=== PATIENT | male | born 1950 | race African-American/Black ===

== ENCOUNTER 2016-07-28 10:09 | Emergency (ER) | payer OTHER, MEDICARE ==
[2016-07-28 10:16] VITALS: BP 124/73
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
--- NOTE | 2016-07-28 14:57 | EKG REPORT ---
SEVERITY:- NORMAL ECG - SINUS RHYTHM : Confirmed by: Alina Bañuelos MD 28-Jul-2016 14:56:36
== END 2016-07-28 12:01 | disposition home or self-care (01) ==
LOC: ER 10:09
DX: R51 Headache (principal); V53.5XXA Driver of pick-up truck or van injured in collision with car, pick-up truck or van in traffic accident, initial encounter; I10 Essential (primary) hypertension
CPT/HCPCS: 70450; 93005; 93010; 99284

== ENCOUNTER 2017-06-05 14:59 | Emergency (ER) | payer MEDICARE, BC ==
[2017-06-05 15:26] VITALS: BP 143/80
[2017-06-05] MEDS ORDERED: DIPH/PERTUSS(ACELL)/TETANUS VAC/PF 0.5 ML SYR (>=10YO) IM ONE (15:35)
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
== END 2017-06-05 16:32 | disposition home or self-care (01) ==
LOC: ER 14:59
PROC: 0HQ0XZZ Repair Scalp Skin, External Approach (ICD-10-PCS; principal; 2017-06-05)
DX: S01.01XA Laceration without foreign body of scalp, initial encounter (principal); W22.8XXA Striking against or struck by other objects, initial encounter
CPT/HCPCS: 99282

== ENCOUNTER 2017-06-09 06:21 | Emergency (ER) | payer MEDICARE, BC ==
[2017-06-09 06:27] VITALS: BP 131/73
--- NOTE | 2017-06-09 06:39 | ER Document Report ---
HPI - HPI Patient complains to provider of: Staple removal Pain Level: Denies Context: 67-year-old male, chief complaint of being here for staple removal, criss placed 4 days ago, told to come back in 3-5 days. [place] were placed for hitting his head on a shelf. Denies headaches or any other difficulties. - REPRODUCTIVE Reproductive: DENIES: : Past Medical History - General Information source: Patient - Social History Smoking Status: Never Smoker Frequency of alcohol use: None Drug Abuse: None Lives with: Family Family History: Reviewed & Not Pertinent - Past Medical History Cardiac Medical History: Reports: Hx Heart Murmur - innocent Denies: Hx Coronary Artery Disease, Hx Heart Attack, Hx Hypertension Pulmonary Medical History: Denies: Hx Asthma, Hx Bronchitis, Hx COPD, Hx Pneumonia Neurological Medical History: Denies: Hx Cerebrovascular Accident, Hx Seizures Renal/ Medical History: Denies: Hx Peritoneal Dialysis GI Medical History: Musculoskeltal Medical History: Denies Hx Arthritis Infectious Medical History: Past Surgical History: Denies: Hx Pacemaker - Immunizations Hx Diphtheria, Pertussis, Tetanus Vaccination: Yes Vertical Provider Document - CONSTITUTIONAL General Appearance: WD/WN, No Apparent Distress - INFECTION CONTROL TRAVEL OUTSIDE OF THE [place] IN LAST 30 DAYS: No - HEENT HEENT: Normocephalic - NECK Neck: Normal Inspection - RESPIRATORY Respiratory: Breath Sounds Normal, No Respiratory Distress O2 Sat by Pulse Oximetry: 98 - CARDIOVASCULAR Cardiovascular: Regular Rate, Regular Rhythm - DERM Integumentary: Laceration - Healed laceration over the right frontal scalp, staple in place, no surrounding bleeding, rhythmic, induration, fluctuance. No noted tenderness to the area. Course - Re-evaluation Re-evalutation: Single staple removed without complication. Wound appears healed. No other complaints. No other concerning findings. - Vital Signs Vital signs: Temp Pulse Resp BP Pulse Ox 98.4 F 55 L 16 131/73 H 98 06/09/17 06:24 06/09/17 06:24 06/09/17 06:24 06/09/17 06:24 06/09/17 06:24 Discharge - Discharge Clinical Impression: Encounter for staple removal Condition: Stable Disposition: HOME, SELF-CARE Additional Instructions: Clean area gently with soap and water. Follow-up with primary care. Return for any concerning symptoms including severe headaches, fever, discolored drainage from the area, or any other concerning symptoms.
== END 2017-06-09 06:43 | disposition home or self-care (01) ==
LOC: ER 06:21
DX: Z48.02 Encounter for removal of sutures (principal)

== ENCOUNTER → 2017-08-25 | Outpatient (CLI) | payer MEDICARE, BC | LOC: OD 07:30 | PROVIDERS: ATTEND Urology | DX: N40.1 Benign prostatic hyperplasia with lower urinary tract symptoms (principal); N52.8 Other male erectile dysfunction; N52.9 Male erectile dysfunction, unspecified | CPT/HCPCS: 36415; 84153 ==

== ENCOUNTER 2018-07-26 19:00 | Emergency (ER) | payer BC, MEDICARE ==
[2018-07-26 19:28] VITALS: BP 136/74
[2018-07-26] MEDS ORDERED: ACETAMINOPHEN 325 MG TABLET PO ONE (20:28)
[2018-07-26] MEDS ORDERED: IBUPROFEN 600 MG TABLET PO ONE (20:28)
[2018-07-26] MEDS ORDERED: LIDOCAINE 5% (700 MG) TRANSDERMAL ADH..PATCH TP ONE (20:28)
--- NOTE | 2018-07-26 20:30 | ER Document Report ---
HPI - HPI Time Seen by Provider: 07/26/18 20:19 Pain Level: 5 Context: Patient is a 68-year-old male who presents to the emergency department with a chief complaint of right arm and shoulder pain. He states that he has had his pain for the past few weeks. He also states that he has a knot in his shoulder. He has been taking Tylenol for his pain, but takes it sporadically. He denies any weakness. - CONSTITUTIONAL Constitutional: DENIES: Fever, Chills - CARDIOVASCULAR Cardiovascular: DENIES: Chest pain - RESPIRATORY Respiratory: DENIES: Trouble Breathing - REPRODUCTIVE Reproductive: DENIES: : - MUSCULOSKELETAL Musculoskeletal: REPORTS: Extremity pain - R arm pain and R shoulder lump Past Medical History - Social History Smoking Status: Never Smoker Frequency of alcohol use: None Drug Abuse: None Family History: Reviewed & Not Pertinent Patient has suicidal ideation: No Patient has homicidal ideation: No - Past Medical History Cardiac Medical History: Reports: Hx Hypertension, Hx Heart Murmur - innocent Denies: Hx Coronary Artery Disease, Hx Heart Attack Pulmonary Medical History: Denies: Hx Asthma, Hx Bronchitis, Hx COPD, Hx Pneumonia Neurological Medical History: Denies: Hx Cerebrovascular Accident, Hx Seizures Renal/ Medical History: Denies: Hx Peritoneal Dialysis GI Medical History: Musculoskeletal Medical History: Denies Hx Arthritis Infectious Medical History: Past Surgical History: Denies: Hx Pacemaker - Immunizations Hx Diphtheria, Pertussis, Tetanus Vaccination: Yes Vertical Provider Document - INFECTION CONTROL TRAVEL OUTSIDE OF THE [place] IN LAST 30 DAYS: No - HEENT HEENT: Atraumatic, Normocephalic - NECK Neck: Normal Inspection - RESPIRATORY Respiratory: Breath Sounds Normal - CARDIOVASCULAR Cardiovascular: Regular Rate, Regular Rhythm - MUSCULOSKELETAL/EXTREMETIES Musculoskeletal/Extremeties: FROM, Tender - Right shoulder and trapezius area, No Edema - NEURO Level of Consciousness: Awake, Alert, Appropriate Motor/Sensory: No Motor Deficit - DERM Integumentary: Warm, Dry Course - Re-evaluation Re-evalutation: 07/26/18 20:38 Patient denies any trauma to his arm, therefore an x-ray is not indicated at this time. I suspect his pain is due to muscle tension in his right shoulder. I massage the area and he stated that he felt better after massage the area. He will be given Motrin and Tylenol for his symptoms. He also be given a lidocaine patch. I do not suspect patient has compartment syndrome, as his arm is soft. Verbal discharge instructions were given to the patient. They verbalized understanding. They are stable for discharge. - Vital Signs Vital signs: Temp Pulse Resp BP Pulse Ox 98.0 F 56 L 18 136/74 H 96 07/26/18 19:27 07/26/18 19:27 07/26/18 19:27 07/26/18 19:27 07/26/18 19:27 Discharge - Discharge Clinical Impression: Right arm pain Shoulder pain Qualifiers: Chronicity: acute Laterality: right Qualified Code(s): M25.511 - Pain in right shoulder Condition: Stable Disposition: HOME, SELF-CARE Additional Instructions: You were seen in the emergency department today for right arm pain and right shoulder pain. Your pain is due to the tight muscle in your shoulder. Make sure you have someone massage that area to help release the muscle tension in the area. Please take Tylenol 1000 mg and ibuprofen 600 mg every 6 hours as needed for your pain. You may use [id number] Aspercreme with lidocaine to the area as needed per box instructions. Please follow-up with your primary care provider in regards to this visit. If you have weakness, or unable to move your arm, please return to the emergency department. Referrals: ANALI PARDO MD [NO LOCAL MD] - Follow up in 1 week
== END 2018-07-26 20:50 | disposition home or self-care (01) ==
LOC: ER 19:00
DX: M79.601 Pain in right arm (principal); M25.511 Pain in right shoulder; R22.31 Localized swelling, mass and lump, right upper limb; I10 Essential (primary) hypertension
CPT/HCPCS: 99283

== ENCOUNTER 2019-11-21 07:47 | Day surgery (SDC) | payer MEDICARE, BC ==
[~2019-11-21 07:47] MED LIST: FENTANYL CITRATE INJ/PF 100 MCG/2 ML AMPUL ONE; KETOROLAC TROMETHAMINE 0.45% 4 DROP/0.4 ML DROPERETTE OD PRN; MIDAZOLAM 2 MG/2 ML INJ ONE; ONDANSETRON HCL INJ/PF 4 MG/2 ML SDV ONE
[2019-11-21] MEDS: TETRACAINE HCL 0.5% OPH SOLN 4 ML OD PRN ×4 (08:20→08:50)
[2019-11-21] MEDS: CYCLOPENTOLATE 0.2%/PHENYLEPHRINE 1% OPH SOLN 2 ML OD PRN ×3 (08:21→08:40)
[2019-11-21] MEDS: BESIFLOXACIN HCL 0.6% OPH SUSP 5 ML BOTTLE OD PRN ×4 (08:21→09:12)
[2019-11-21] MEDS: TROPICAMIDE 1% OPH SOLN 15 ML OD PRN ×3 (08:21→08:40)
[2019-11-21] MEDS: EPINEPHRINE INJ/PF 1 MG/1 ML AMPULE ONE ×2 (08:57)
[2019-11-21] MEDS: CHONDR SU A NA/HYALUR INTRAOC KIT (SURGICARE) ONE ×2 (08:57)
[2019-11-21] MEDS: LIDOCAINE 1%/PHENYLEPHRINE 1.5% 1 ML VIAL ONE ×2 (08:57)
[2019-11-21] MEDS: DORZOLAMIDE HCL 2%/TIMOLOL MALEAT 0.5% OPH SOLN 10 ML OD PRN ×2 (09:12)
--- NOTE | 2019-11-21 10:48 | Operative Report ---
Operative Report-[facility] Operative Report: DATE OF SURGERY: November 21, 2019 PREOPERATIVE DIAGNOSIS: NUCLEAR CATARACT, RIGHT EYE. Glaucoma right eye POSTOPERATIVE DIAGNOSIS: NUCLEAR CATARACT, RIGHT EYE. Glaucoma right eye PROCEDURE PERFORMED: PHACOEMULSIFICATION WITH POSTERIOR CHAMBER INTRAOCULAR LENS IMPLANT, RIGHT EYE. I stent inject SURGEON: Paulino Benson, MEDICATIONS AND ANESTHESIA: Versed: IV Versed Tetracaine drops: 1 to 2 drops given as needed COMPLICATION: [None] INDICATIONS FOR SURGERY: Medical necessity: Best corrected visual acuity worse than 20/40 secondary to cataracts with impairment of ability to carry out needs or desired activities, blurred vision, visual distortion, reduced contrast sensitivity and/or glare with association functional impairment and supporting documentation/testing, and cataracts causing symptomatic impairment of visual functions not corrected with tolerable changes in glasses or contact lenses interfering with activities of daily life. PROCEDURE: Consent: The risks, benefits and alternatives of this procedures was discussed with the patient. The patient read and signed the consent forms, was identified and was seated in the exam chair. IOL: MX 60 E 21.0 IOL Diopters: [] Phacoemulsification with posterior chamber intraocular lens implant: The face was prepped with 5% povidone iodine solution, and a few drops of 5% povidone iodine solution was instilled into the inferior fornix. A non-fenestrated drape was placed over the eye and the lids were parted with the speculum. A paracentes is was made with a 15 degree blade, and 1% lidocaine MPF followed by viscoelastic was injected into the anterior chamber. A 2.4 mm metal micro- keratome was used to create a temporal clear corneal incision. A circular anterior capsulorrhexis was created, followed by hydro-dissection and hydro- delineation. The phacoemulsification hand piece was inserted and the nucleus was removed with the Phaco chop technique. The irrigation-aspiration hand piece was used to remove the residual cortex, and vacuum the posterior capsule. The capsular bag was inflated and viscoelastic and the above-mentioned IOL was injected into the eye with care to insert both leaning and trailing haptics in the capsular bag. The irrigation/aspiration hand piece was reinserted to remove residual viscoelastic from the capsular bag and anterior chamber. The corneal incision was hydrated, and anterior chamber was inflated with sterile BSS via the paracentesis site, and found to be watertight. Postop medication: 1 drop of prednisolone into operative by followed by 1 drop of Cosopt into operative eye followed by 1 drop of Besivance intraoperative by other: During the case I stent inject was placed, two Istents approximately 2 clock hours apart
== END 2019-11-21 09:44 | disposition home or self-care (01) ==
LOC: SC 07:47
PROVIDERS: ATTEND Ophthalmology
DX: H25.11 Age-related nuclear cataract, right eye (principal); H40.1131 Primary open-angle glaucoma, bilateral, mild stage; Z79.899 Other long term (current) drug therapy; I10 Essential (primary) hypertension
CPT/HCPCS: 0191T; 66984; C1783; J0171; J2250; J2405; J3010; J3490; V2632

== ENCOUNTER 2019-12-05 08:32 | Day surgery (SDC) | payer MEDICARE, BC ==
[~2019-12-05 08:32] MED LIST changes: -FENTANYL CITRATE INJ/PF 100 MCG/2 ML AMPUL ONE; -KETOROLAC TROMETHAMINE 0.45% 4 DROP/0.4 ML DROPERETTE OD PRN; +KETOROLAC TROMETHAMINE 0.45% 4 DROP/0.4 ML DROPERETTE OS PRN; -MIDAZOLAM 2 MG/2 ML INJ ONE; -ONDANSETRON HCL INJ/PF 4 MG/2 ML SDV ONE
[2019-12-05] MEDS: CYCLOPENTOLATE 0.2%/PHENYLEPHRINE 1% OPH SOLN 2 ML OS PRN ×3 (08:38→08:58)
[2019-12-05] MEDS: TROPICAMIDE 1% OPH SOLN 15 ML OS PRN ×3 (08:38→08:58)
[2019-12-05] MEDS: BESIFLOXACIN HCL 0.6% OPH SUSP 5 ML BOTTLE OS PRN ×4 (08:38→09:38)
[2019-12-05] MEDS: TETRACAINE HCL 0.5% OPH SOLN 4 ML OS PRN ×4 (08:39→09:15)
[2019-12-05] MEDS ORDERED: MIDAZOLAM 2 MG/2 ML INJ ONE (08:47)
[2019-12-05] MEDS ORDERED: FENTANYL CITRATE INJ/PF 100 MCG/2 ML AMPUL ONE (08:47)
[2019-12-05] MEDS: LIDOCAINE 1%/PHENYLEPHRINE 1.5% 1 ML VIAL ONE ×2 (09:23)
[2019-12-05] MEDS: EPINEPHRINE INJ/PF 1 MG/1 ML AMPULE ONE ×2 (09:23)
[2019-12-05] MEDS: CHONDR SU A NA/HYALUR INTRAOC KIT (SURGICARE) ONE ×2 (09:23)
[2019-12-05] MEDS: DORZOLAMIDE HCL 2%/TIMOLOL MALEAT 0.5% OPH SOLN 10 ML OS PRN ×2 (09:38)
--- NOTE | 2019-12-05 09:50 | Operative Report ---
Operative Report-[facility] Operative Report: DATE OF SURGERY: December 05, 2019 PREOPERATIVE DIAGNOSIS: NUCLEAR CATARACT, LEFT EYE. Primary open angle glaucoma POSTOPERATIVE DIAGNOSIS: NUCLEAR CATARACT, LEFT EYE. Primary open angle glaucoma PROCEDURE PERFORMED: PHACOEMULSIFICATION WITH POSTERIOR CHAMBER INTRAOCULAR LENS IMPLANT, LEFT EYE. With istent inject SURGEON: Paulino Benson, MEDICATIONS AND ANESTHESIA: Versed: IV Versed Tetracaine drops: 1 to 2 drops given as needed COMPLICATION: [None] INDICATIONS FOR SURGERY: Medical necessity: Best corrected visual acuity worse than 20/40 secondary to cataracts with impairment of ability to carry out needs or desired activities, blurred vision, visual distortion, reduced contrast sensitivity and/or glare with association functional impairment and supporting documentation/testing, and cataracts causing symptomatic impairment of visual functions not corrected with tolerable changes in glasses or contact lenses interfering with activities of daily life. PROCEDURE: Consent: The risks, benefits and alternatives of this procedures was discussed with the patient. The patient read and signed the consent forms, was identified and was seated in the exam chair. IOL: MX 60 E 21.0 IOL Diopters: [] Phacoemulsification with posterior chamber intraocular lens implant: The face was prepped with 5% povidone iodine solution, and a few drops of 5% povidone iodine solution was instilled into the inferior fornix. A non-fenestrated drape was placed over the eye and the lids were parted with the speculum. A paracentesis was made with a 15 degree blade, and 1% lidocaine MPF followed by viscoelastic was injected into the anterior chamber. A 2.4 mm metal micro- keratome was used to create a temporal clear corneal incision. A circular anterior capsulorrhexis was created, followed by hydro-dissection and hydro- delineation. The phacoemulsification hand piece was inserted and the nucleus was removed with the Phaco chop technique. The irrigation-aspiration hand piece was used to remove the residual cortex, and vacuum the posterior capsule. The capsular bag was inflated and viscoelastic and the above-mentioned IOL was injected into the eye with care to insert both leaning and trailing haptics in the capsular bag. The irrigation/aspiration hand piece was reinserted to remove residual viscoelastic from the capsular bag and anterior chamber. The corneal incision was hydrated, and anterior chamber was inflated with sterile BSS via the paracentesis site, and found to be watertight. In addition two Istent injects were placed approximately 2 clock hours apart. Postop medication:1 drop of prednisolone into operative by followed by 1 drop of Cosopt into operative eye followed by 1 drop of Besivance intraoperative by Other: []
== END 2019-12-05 10:10 | disposition home or self-care (01) ==
LOC: SC 08:32
PROVIDERS: ATTEND Ophthalmology
DX: H25.12 Age-related nuclear cataract, left eye (principal); H40.1121 Primary open-angle glaucoma, left eye, mild stage; Z98.41 Cataract extraction status, right eye; I10 Essential (primary) hypertension; Z79.899 Other long term (current) drug therapy; N40.0 Benign prostatic hyperplasia without lower urinary tract symptoms
CPT/HCPCS: 0191T; 66984; 140; C1783; J0171; J2250; J3010; J3490; V2632